=== PATIENT | male | born 1965 | race Caucasian/White ===

== ENCOUNTER 2016-05-16 16:43 | Emergency (ER) | payer SELFPAY ==
[2016-05-16 16:53] VITALS: BP 135/99; PULSE 99; RESP 14; TEMP 98.4; O2SAT 95
--- NOTE | 2016-05-16 18:21 | EDPHY ---
H & P Stated Complaint: R ear pain x2 days - Personal History Current Tetanus/Diphtheria Vaccine: Yes Current Tetanus Diphtheria and Acellular Pertussis (TDAP): Yes Tetanus Vaccine Date: 2006 - Medical/Surgical History Hx Asthma: No Hx Chronic Respiratory Disease: No Hx Diabetes: No Hx Cardiac Disease: No Hx Renal Disease: No Hx Cirrhosis: No Hx Alcoholism: No Hx HIV/AIDS: No Hx Splenectomy or Spleen Trauma: No Other PMH: MEDICAL- ADD. SURGICAL- CARPAL TUNNEL, TONSILECTOMY - Social History Smoking Status: Heavy smoker Time Seen by Provider: 05/16/16 17:57 HPI/ROS: Chief complaint: Right ear pain History of present illness: 50-year-old male presents to the emergency department for evaluation of right ear pain. Patient reports the onset of symptoms over the last 2 days. He states his slowly worsening. Pain radiates down towards the neck. He denies precipitating factors. He denies alleviating factors. He denies other associated signs or symptoms including no changes in hearing, no discharge from the ear, no fevers, no nasal congestion or runny nose , no sore throat, no cough, no body aches or rash. (Godwin Robertson) - Physical Exam Exam: General Appearance: Alert and no distress. Eyes: Pupils equal and round no injection. ENT: Right tympanic membrane is erythematous and bulging with loss of normal anatomic landmarks, no evidence of perforation, left tympanic membrane unremarkable, the external auditory canals, external ears and surrounding soft tissue including over the mastoids are unremarkable. Nasopharynx is not injected. There is no rhinorrhea. Oropharynx is not injected. There is no edema. There is no exudate. There is no asymmetry. The uvula is midline. No elevation of the tongue. There is no hoarseness, no drooling, no trismus, no stridor. Respiratory: Chest is non tender, lungs are clear to auscultation. Cardiac: regular rate and rhythm Musculoskeletal: Neck is supple and non tender. Extremities have full range of motion and are non tender. Skin: No rashes or lesions. Neurological: Alert and oriented. No meningismus. (Godwin Robertson) Constitutional: Initial Vital Signs Temperature (C) 36.9 C 05/16/16 16:51 Heart Rate 99 05/16/16 16:51 Respiratory Rate 14 01/06/17 16:51 Blood Pressure 135/99 H 05/16/16 16:51 O2 Sat (%) 95 05/16/16 16:51 O2 Delivery Mode Room Air Allergies/Adverse Reactions: No Known Allergies Allergy (Unverified 05/16/16 16:51) Home Medications: Medication Instructions Recorded Adderall 10 MG (RX) 07/13/13 AMOXICILLIN TRIHYDRATE [Amoxil] 875 mg PO BID 10 Days 05/16/16 Hydrocodone/APAP 5/325 [[place] 1 tab PO Q6H #6 tab 05/16/16 5/325 (*)] Medical Decision Making ED Course/Re-evaluation: Patient seen under the supervision of my secondary supervising physician Dr. Artis Wheeler. Patient presents to the emergency department for right ear pain. Patient appears to have an acute otitis media. No evidence of complications such as perforation or mastoiditis. He is started on antibiotics. Symptomatic care is discussed. He is asked to follow up with a primary care doctor for recheck. Strict return precautions are given. Patient voiced understanding and agreement with plan. (Godwin Robertson) I did not see this patient while he was in the emergency department. However his care was discussed with the PA while the patient was in the department. I agree with treatment plan and management (Artis Wheeler) Departure - Departure Disposition: Home, Routine, Self-Care Clinical Impression: Right acute otitis media Condition: Good Instructions: Otitis Media (ED) Additional Instructions: Follow-up with primary care doctor for recheck Use medications as prescribed If you develop any discharge/bloody discharge from the ear do not place any ear drops in your ear and please be re-evaluated by a doctor You have been prescribed [[place]] for pain. [[place]] contains Tylenol, do not take extra Tylenol/acetaminophen/Apap with it. It is sedating. If symptoms worsen or new symptoms develop return to the emergency department for recheck Referrals: NONE *PRIMARY CARE P,. [Primary Care Provider] - As per Instructions [facility] [Outside] - As per Instructions Prescriptions: AMOXICILLIN TRIHYDRATE [Amoxil] 875 mg PO BID 10 Days Hydrocodone/APAP 5/325 [[place] 5/325 (*)] 1 tab PO Q6H #6 tab
== END 2016-05-16 18:30 | disposition home or self-care (01) ==
DX: H66.91 Otitis media, unspecified, right ear (principal); F17.200 Nicotine dependence, unspecified, uncomplicated

== ENCOUNTER 2017-10-15 18:48 | Emergency (ER) | payer SELFPAY ==
[2017-10-15] MEDS ORDERED: NS 500 ML IV ONE (19:05)
--- NOTE | 2017-10-15 19:18 | CPEKG ---
Heart Rate: 97 RR Interval: 619 P-R Interval: 152 QRSD Interval: 96 QT Interval: 352 QTC Interval: 447 P [place]: 45 QRS [place]: 74 T Wave [place]: 60 EKG Severity - NORMAL ECG - EKG Impression: SINUS RHYTHM Electronically Signed By: Mauro Barros 15-Oct-2017 20:40:25
[2017-10-15 19:30] LABS: PLATELET COUNT 176 10^3/uL (150-400)
[2017-10-15] MEDS ORDERED: MAG HYDROX/AL HYDROX/SIMETH 30 ML UDCUP PO ONE (19:34)
[2017-10-15] MEDS ORDERED: NS 1,000 ML IV ONE ×3 (19:34→20:28)
[2017-10-15] MEDS ORDERED: LIDOCAINE 2% VISCOUS 15 ML UDCUP PO ONE (19:34)
[2017-10-15] MEDS ORDERED: FAMOTIDINE 20 MG/NACL 50 ML IV ONE (19:34)
[2017-10-15] MEDS ORDERED: ONDANSETRON 4 MG/2 ML VIAL IVP ONE (19:34)
[2017-10-15] MEDS ORDERED: HYOSCYAMINE SULFATE 0.125 MG TAB PO ONE (19:34)
--- NOTE | 2017-10-15 19:39 | EDPHY ---
H & P Time Seen by Provider: 10/15/17 19:05 HPI/ROS: HPI Diarrhea, dehydration, weakness. 52-year-old male by private vehicle. He reports that he ate at a [place] restaurant on Thursday evening. After doing this he developed watery diarrhea. He reports he has had multiple episodes of watery diarrhea since this time. He has had a loss of appetite but denies nausea or vomiting. Denies any bloody or melenic stool. States that he feels very dehydrated and fatigued. He also has had a sensation of heartburn/dyspepsia describing this is burning sensation from his stomach up through his esophagus. He reports this has been going on for the last couple of days. Denies any ill contacts. Denies syncope. ROS: Constitutional: No fever, no chills. As above. Eyes: No discharge. No changes in vision. ENT: No sore throat. No nasal congestion or rhinorrhea. Respiratory: No cough. No shortness of breath. Cardiac: No chest pain, no palpitations. Gastrointestinal: No abdominal pain, no vomiting, as above. Genitourinary: No hematuria. No dysuria or increased frequency with urination. Musculoskeletal: No back pain. No neck pain. No myalgias or arthralgias. Skin: No rashes. Neurological: No headache. No focal weakness or altered sensation. Past medical history: Carpal tunnel surgery, tonsillectomy. Denies other past medical history. Social history: Denies alcohol. States that he smokes. No IV drugs or street drugs. Here by himself. Lives in a private residence. Physical Exam: General Appearance: Alert, no distress. This patient is responding to questions appropriately and in full sentences. This patient appears well- hydrated and well-nourished. Eyes: Pupils equal and round no pallor or injection. No lid edema, erythema or injection. Respiratory: There are no retractions, lungs are clear to auscultation with good air movement bilaterally. Cardiovascular: Regular rate and rhythm. Borderline tachycardia. No murmur. Gastrointestinal: Abdomen is soft and nontender, no masses, bowel sounds normal. No focal tenderness at McBurney's point. No Lopez sign. Neurological: Motor sensory function is grossly intact. Cranial nerves are normal. Gait is normal. Skin: Warm and dry, no rashes. Musculoskeletal: Neck is supple and nontender. Extremities are symmetrical. All joints range without pain or impingement. Psychiatric: No agitation. No depression. Database: EKG: EKG time is 7:15 p.m.; EKG shows a narrow complex normal sinus rhythm with a ventricular rate of 97. The MS, QRS, QT intervals are within normal limits. There are no ST-T wave changes indicative of ischemic or injury pattern. No evidence of right heart strain. Interpreted by me. Imaging: Procedures: Emergency department course: IV placed. Triage vital signs reviewed. The patient is mildly tachycardic. Vital signs otherwise normal. His presentation is consistent with dehydration secondary to his diarrhea. EKG obtained and reviewed by myself. IV established. He will be started on IV normal saline with 2-3 L to be given over the next 1-2 hours. He will be given 20 mg of IV Pepcid, 4 mg of IV Zofran and a GI cocktail. 8:30 p.m., the patient was re-evaluated. He appears comfortable. Repeat abdominal exam is soft and nontender. He still is mildly tachycardic at 105. Remains afebrile. He will be given more IV fluid in the form of lactated Ringer 's. He will be given something to eat. 10:15 p.m., patient re-evaluated. He had part of a sandwich and some juice and crackers. He is feeling better. Repeat abdominal exam is soft, nontender nondistended. He has had 3 L of fluid. He still remains mildly tachycardic. I discussed giving him more IV fluid and continuing to observe him in the emergency department. He does not want to do this and he is requesting discharge to home. I discussed the results of all of his emergency department testing with him. All of his questions were answered. I stressed the importance of oral hydration. I will prescribe him Zofran for nausea. Return to emergency department precautions and follow-up were thoroughly reviewed with him. He was discharged from the emergency department in good condition. Differential Diagnosis: The differential diagnosis on this patient includes but is not limited to diarrhea, dehydration. Acute coronary syndrome, arrhythmia, near syncope unlikely. This represents a partial list of diagnoses considered. These considerations are based on history, physical exam, past history, reassessment and diagnostic testing. Smoking Status: Heavy smoker Constitutional: Initial Vital Signs Temperature (C) 36.7 C 10/15/17 18:59 Heart Rate 106 H 10/15/17 18:59 Respiratory Rate 16 10/15/17 18:59 Blood Pressure 122/80 H 10/15/17 18:59 O2 Sat (%) 95 10/15/17 18:59 O2 Delivery Mode Room Air Allergies/Adverse Reactions: No Known Allergies Allergy (Unverified 10/15/17 18:58) Home Medications: Medication Instructions Recorded Adderall 10 MG (*) 10/15/17 Ondansetron Odt [Zofran Odt 4 mg 4 mg PO Q4PRN PRN #10 tab 10/15/17 (*)] Medical Decision Making - Data Points Laboratory Results: Laboratory Results 10/15/17 19:06 10/15/17 19:06 10/15/17 10/15/17 10/15/17 19:21 19:06 19:06 WBC 5.85 10^3/uL 10^3/uL (3.80-9.50) RBC 5.60 10^6/uL 10^6/uL (4.40-6.38) Hgb 15.9 g/dL g/dL (13.7-17.5) Hct 46.5 % % (40.0-51.0) MCV 83.0 fL fL (81.5-99.8) MCH 28.4 pg pg (27.9-34.1) MCHC 34.2 g/dL g/dL (32.4-36.7) RDW 12.6 % % (11.5-15.2) Plt Count 176 10^3/uL 10^3/uL (150-400) MPV 9.5 fL fL (8.7-11.7) Neut % (Auto) Not Reported Lymph % (Auto) Not Reported [place] % (Auto) Not Reported Eos % (Auto) Not Reported Baso % (Auto) Not Reported Nucleat RBC Rel Count Not Reported Absolute Neuts (auto) Not Reported Absolute Lymphs (auto) Not Reported Absolute Monos (auto) Not Reported Absolute Eos (auto) Not Reported Absolute Basos (auto) Not Reported Absolute Nucleated RBC Not Reported Immature Gran % Not Reported Seg Neutrophils % 61.6 % % Band Neutrophils % 0 % % Lymphocytes % 19.2 % % Monocytes % 11.1 % % Eosinophils % 6.1 % % Basophils % 0 % % Metamyelocytes % 0 % % Myelocytes % 0 % % Promyelocytes % 0 % % Blast Cells % 0 % % Immature Gran # Not Reported Absolute Seg Neuts 3.60 10^/uL 10^/uL (1.70-6.50) Absolute Band Neuts 0.00 10^3/uL 10^3/uL (0.00-0.70) Absolute Lymphocytes 1.12 10^3/uL 10^3/uL (1.00-3.00) Absolute Monocytes 0.65 10^3/uL 10^3/uL (0.30-0.80) Absolute Eosinophils 0.36 10^3/uL 10^3/uL (0.03-0.40) Absolute Basophils 0.00 10^3/uL L 10^3/uL (0.02-0.10) Absolute Metamyelocyte 0.00 10^3/mL 10^3/mL (0.00-0.00) Absolute Myelocytes 0.00 10^3/mL 10^3/mL (0.00-0.00) Absolute Promyelocytes 0.00 10^3/uL 10^3/uL (0.00-0.00) Absolute Plasma Cells 0.12 10^3/uL H 10^3/uL (0.00-0.00) Absolute Blast Cells 0.00 10^3/uL 10^3/uL (0.00-0.00) Plasma Cells % 2.0 % % Platelet Estimate ADEQUATE (ADEQ) Tear Drop Cells 1+ H Echinocytes 1+ H Smear Review By Pending Sodium 136 mEq/L mEq/L (135-145) Potassium 4.0 mEq/L mEq/L (3.3-5.0) Chloride 99 mEq/L mEq/L (97-110) Carbon Dioxide 29 mEq/l mEq/l (22-31) Anion Gap 8 mEq/L mEq/L (8-16) BUN 13 mg/dL mg/dL (7-23) Creatinine 1.0 mg/dL mg/dL (0.7-1.3) Estimated GFR > 60 Glucose 75 mg/dL mg/dL (70-100) Calcium 8.3 mg/dL L mg/dL (8.5-10.4) POC Troponin I 0.00 ng/mL ng/mL (0.00-0.08) Medications Given: Discontinued Medications Al Hydroxide/Mg Hydroxide (Maalox Susp) 30 ml PO ONCE ONE Stop: 10/15/17 19:35 Last Admin: 10/15/17 19:40 Dose: 30 ml Hyoscyamine Sulfate (Levsin, Hyomax-Sl) 0.25 mg PO ONCE ONE Stop: 10/15/17 19:35 Last Admin: 10/15/17 19:40 Dose: 0.25 mg Sodium Chloride (Ns) 500 mls @ 1,000 mls/hr IV EDNOW ONE PRN Reason: Protocol Stop: 10/15/17 19:34 Last Admin: 10/15/17 19:18 Dose: 500 mls Sodium Chloride (Ns) 1,000 mls @ 0 mls/hr IV EDNOW ONE; Wide Open PRN Reason: Protocol Stop: 10/15/17 19:35 Last Admin: 10/15/17 19:41 Dose: 1,000 mls Sodium Chloride (Ns) 1,000 mls @ 0 mls/hr IV EDNOW ONE; Wide Open PRN Reason: Protocol Stop: 10/15/17 19:35 Last Admin: 10/15/17 19:41 Dose: 1,000 mls Famotidine/Sodium Chloride (Pepcid 20 Mg (Premix)) 50 mls @ 200 mls/hr IV EDNOW ONE Stop: 10/15/17 19:48 Last Admin: 10/15/17 19:40 Dose: 50 mls Lactated Ringer's (Lr) 1,000 mls @ 500 mls/hr IV EDNOW ONE Stop: 10/15/17 22:28 Last Admin: 10/15/17 20:32 Dose: 1,000 mls Lidocaine (Lidocaine 2% Viscous) 15 ml PO ONCE ONE Stop: 10/15/17 19:35 Last Admin: 10/15/17 19:39 Dose: 15 ml Ondansetron HCl (Zofran) 4 mg IVP EDNOW ONE Stop: 10/15/17 19:35 Last Admin: 10/15/17 19:43 Dose: 4 mg Point of Care Test Results: Chemistry 10/15/17 19:21 POC Troponin I 0.00 ng/mL ng/mL (0.00-0.08) Departure - Departure Disposition: Home, Routine, Self-Care Clinical Impression: Diarrhea, Dehydration, Tachycardia Condition: Good Instructions: Dehydration (ED), Acute Diarrhea (ED) Additional Instructions: Read and follow provided instructions. Follow-up with your primary care physician on Thursday for re-evaluation as needed. I have provided you with 2 different options for follow-up. Take medication as prescribed for nausea. Keep well hydrated. A good fluid to drink is Gatorade mixed with water in a 1- 1 dilution over ice. Return to the emergency department for worsening symptoms, vomiting, fainting, worsening abdominal pain, bloody stool or other serious concerns. Referrals: Hernandez Rios MD [Medical Doctor] - As per Instructions [facility] [Outside] - As per Instructions Carmen Juarez MD [Medical Doctor] - As per Instructions Prescriptions: Ondansetron Odt [Zofran Odt 4 mg (*)] 4 mg PO Q4PRN PRN #10 tab PRN Reason: For Nausea & Vomiting
[2017-10-15] MEDS ORDERED: LR 1,000 ML IV ONE (20:29)
[2017-10-15] MEDS ORDERED: ONDANSETRON 4MG PREPACK#2 BTL TAKEHOME ONE (22:34)
[2017-10-15 22:54] VITALS: BP 123/82
== END 2017-10-15 22:51 | disposition home or self-care (01) ==
DX: E86.0 Dehydration (principal); R00.0 Tachycardia, unspecified; F17.200 Nicotine dependence, unspecified, uncomplicated; E86.9 Volume depletion, unspecified
CPT/HCPCS: 84484-PO; J2405

== ENCOUNTER 2017-10-20 00:17 | Emergency (ER) | payer SELFPAY ==
[2017-10-20 20:08] VITALS: BP 117/67
[2017-10-20 23:36] LABS: PLATELET COUNT 308 10^3/uL (150-400)
--- NOTE | 2017-10-21 02:48 | EDPHY ---
H & P Stated Complaint: abdominal pian Time Seen by Provider: 10/20/17 00:30 HPI/ROS: HPI CHIEF COMPLAINT: Abdominal pain, nausea. HISTORY OF PRESENT ILLNESS: Patient is a 52-year-old male, presents emergency room by private vehicle for abdominal discomfort, and abdominal bloating with associated nausea but no vomiting. He does report some diarrhea but no fever. Denies bloody stools. Denies chest pain or shortness of breath. He states has been going on for week. He states he was recently seen here in the emergency room earlier in the week. I did review his previous ER workup which she was seen for diarrhea dehydration and generalized weakness. Past Medical History: Denies any significant medical history Past Surgical History: Carpal tunnel surgery, tonsillectomy Social History: Smokes tobacco, denies illicit drugs or alcohol. Family History: Noncontributory ROS REVIEW OF SYSTEMS: A comprehensive 10 point review of systems is otherwise negative aside from elements mentioned in the history of present illness. Exam Constitutional triage nursing summary reviewed, vital signs reviewed, awake/ alert. Eyes normal conjunctivae and sclera, EOMI, PERRLA. HENT normal inspection, atraumatic, moist mucus membranes, no epistaxis, neck supple/ no meningismus, no raccoon eyes. Respiratory clear to auscultation bilaterally, normal breath sounds, no respiratory distress, no wheezing. Cardiovascular rate normal, regular rhythm, no murmur, no edema, distal pulses normal. Gastrointestinal soft, non-tender, no rebound, no guarding, normal bowel sounds, no distension, no pulsatile mass. Genitourinary no CVA tenderness. Musculoskeletal no midline vertebral tenderness, full range of motion, no calf swelling, no tenderness of extremities, no meningismus, good pulses, neurovascularly intact. Skin pink, warm, & dry, no rash, skin atraumatic. Neurologic awake, alert and oriented x 3, AAOx3, moves all 4 extremities equally, motor intact, sensory intact, CN II-XII intact, normal cerebellar, normal vision, normal speech. Psychiatric normal mood/affect. Heme/Lymph/Immune no lymphadenopathy. Differential Diagnosis: Differential diagnosis includes but is not limited to and in no particular order: Bowel obstruction, appendicitis, gallbladder disease, diverticulitis, colitis, enteritis, perforated viscus, gastritis, GERD , esophagitis, urinary tract infection, pyelonephritis, kidney stones Medical Decision Making: Plan for this patient IV establishment blood draw, IV fluid bolus 1 L normal saline, IV Pepcid 20 mg for upset stomach, will proceed with CT scan abdomen pelvis with IV contrast and will re-evaluate. Re-evaluation: EKG interpretation by me on record in [facility] system. Impression time of EKG 41, sinus rhythm rate of 96. No acute ischemic change. Lactic acid noted be 1.2. Chemistry panel reviewed. Normal lipase and normal electrolytes creatinine is 0.9 CT scan abdomen pelvis with IV contrast called to me by Dr. Chan, negative for acute inflammatory process. 0505:AM: I did go re-evaluate the patient, no acute distress. Re-examination is abdomen is soft nontender. He is not vomiting. Blood work has been reviewed. CT scan shows no acute inflammatory process possible constipation. Will place on MiraLax. Recommend drinking lots of fluids bland diet MiraLax. Recommend return emergency room if develops worsening abdominal pain fever vomiting he understands. Prescription given for MiraLax. Final diagnosis constipation, abdominal discomfort. Return precautions discussed Source: Patient - Personal History Current Tetanus/Diphtheria Vaccine: Unsure Current Tetanus Diphtheria and Acellular Pertussis (TDAP): Unsure Tetanus Vaccine Date: 2006 - Medical/Surgical History Hx Asthma: No Hx Chronic Respiratory Disease: No Hx Diabetes: No Hx Cardiac Disease: No Hx Renal Disease: No Hx Cirrhosis: No Hx Alcoholism: No Hx HIV/AIDS: No Hx Splenectomy or Spleen Trauma: No Other PMH: MEDICAL- ADD. SURGICAL- CARPAL TUNNEL, TONSILECTOMY - Social History Smoking Status: Heavy smoker Constitutional: Initial Vital Signs Temperature (C) 36.7 C 10/20/17 00:23 Heart Rate 106 H 10/20/17 00:23 Respiratory Rate 16 10/20/17 00:23 Blood Pressure 108/72 10/20/17 00:23 O2 Sat (%) 95 10/20/17 00:23 O2 Delivery Mode Room Air Allergies/Adverse Reactions: No Known Allergies Allergy (Unverified 10/20/17 20:03) Home Medications: Medication Instructions Recorded Adderall 10 MG (*) 10/15/17 Ondansetron Odt [Zofran Odt 4 mg 4 mg PO Q4PRN PRN #10 tab 10/15/17 (*)] Medical Decision Making - Data Points Laboratory Results: Laboratory Results 10/20/17 00:56 10/20/17 10/20/17 00:56 00:50 WBC 7.66 10^3/uL 10^3/uL (3.80-9.50) RBC 5.41 10^6/uL 10^6/uL (4.40-6.38) Hgb 15.3 g/dL g/dL (13.7-17.5) Hct 44.5 % % (40.0-51.0) MCV 82.3 fL fL (81.5-99.8) MCH 28.3 pg pg (27.9-34.1) MCHC 34.4 g/dL g/dL (32.4-36.7) RDW 12.9 % % (11.5-15.2) Plt Count 308 10^3/uL 10^3/uL (150-400) MPV 9.3 fL fL (8.7-11.7) Neut % (Auto) Not Reported Lymph % (Auto) Not Reported [place] % (Auto) Not Reported Eos % (Auto) Not Reported Baso % (Auto) Not Reported Nucleat RBC Rel Count Not Reported Absolute Neuts (auto) Not Reported Absolute Lymphs (auto) Not Reported Absolute Monos (auto) Not Reported Absolute Eos (auto) Not Reported Absolute Basos (auto) Not Reported Absolute Nucleated RBC Not Reported Immature Gran % Not Reported Seg Neutrophils % 53 % % Band Neutrophils % 15 % % Lymphocytes % 31 % % Monocytes % 10 % % Immature Gran # Not Reported Absolute Seg Neuts 3.72 10^/uL 10^/uL (1.70-6.50) Absolute Band Neuts 1.05 10^3/uL H 10^3/uL (0.00-0.70) Absolute Lymphocytes 2.17 10^3/uL 10^3/uL (1.00-3.00) Absolute Monocytes 0.70 10^3/uL 10^3/uL (0.30-0.80) Platelet Estimate Pending VBG Lactic Acid 1.2 mmol/L mmol/L (0.7-2.1) Departure - Departure Disposition: Home, Routine, Self-Care Clinical Impression: Abdominal pain Qualifiers: Abdominal location: generalized Qualified Code(s): R10.84 - Generalized abdominal pain Constipation Qualifiers: Constipation type: other constipation type Qualified Code(s): K59.09 - Other constipation Condition: Good Referrals: NONE *PRIMARY CARE P,. [Primary Care Provider] - As per Instructions
--- NOTE | 2017-10-21 09:44 | CPEKG ---
Heart Rate: 96 RR Interval: 625 P-R Interval: 156 QRSD Interval: 104 QT Interval: 364 QTC Interval: 460 P [place]: 69 QRS [place]: 80 T Wave [place]: 55 EKG Severity - NORMAL ECG - EKG Impression: SINUS RHYTHM Electronically Signed By: Nahum Tolbert 21-Oct-2017 11:35:44
--- NOTE | 2017-10-21 14:56 | EDPHY ---
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 HISTORY OF PRESENT ILLNESS: Patient is a 52-year-old male, presents emergency room by private vehicle for abdominal discomfort, and abdominal bloating with associated nausea but no vomiting. He does report some diarrhea but no fever. Denies bloody stools. Denies chest pain or shortness of breath. He states has been going on for week. He states he was recently seen here in the emergency room earlier in the week. I did review his previous ER workup which she was seen for diarrhea dehydration and generalized weakness. Past Medical History: Denies any significant medical history Past Surgical History: Carpal tunnel surgery, tonsillectomy Social History: Smokes tobacco, denies illicit drugs or alcohol. Family History: Noncontributory ROS REVIEW OF SYSTEMS: A comprehensive 10 point review of systems is otherwise negative aside from elements mentioned in the history of present illness. Exam Constitutional triage nursing summary reviewed, vital signs reviewed, awake/alert. Eyes normal conjunctivae and sclera, EOMI, PERRLA. HENT normal inspection, atraumatic, moist mucus membranes, no epistaxis, neck supple/ no meningismus, no raccoon eyes. Respiratory clear to auscultation bilaterally, normal breath sounds, no respiratory distress, no wheezing. Cardiovascular rate normal, regular rhythm, no murmur, no edema, distal pulses normal. Gastrointestinal soft, non-tender, no rebound, no guarding, normal bowel sounds, no distension, no pulsatile mass. Genitourinary no CVA tenderness. Musculoskeletal no midline vertebral tenderness, full range of motion, no calf swelling, no tenderness of extremities, no meningismus, good pulses, neurovascularly intact. Skin pink, warm, dry, no rash, skin atraumatic. Neurologic awake, alert and oriented x 3, AAOx3, moves all 4 extremities equally, motor intact, sensory intact, CN II-XII intact, normal cerebellar, normal vision, normal speech. Psychiatric normal mood/affect. Heme/Lymph/Immune no lymphadenopathy. Differential Diagnosis: Differential diagnosis includes but is not limited to and in no particular order: Bowel obstruction, appendicitis, gallbladder disease, diverticulitis, colitis, enteritis, perforated viscus, gastritis, GERD, esophagitis, urinary tract infection, pyelonephritis, kidney stones Medical Decision Making: Plan for this patient IV establishment blood draw, IV fluid bolus 1 L normal saline, IV Pepcid 20 mg for upset stomach, will proceed with CT scan abdomen pelvis with IV contrast and will re-evaluate. Re-evaluation: EKG interpretation by me on record in [employer] system. Impression time of EKG 0042, sinus rhythm rate of 96. No acute ischemic change. Lactic acid noted be 1.2. Chemistry panel reviewed. Normal lipase and normal electrolytes creatinine is 0.9 CT scan abdomen pelvis with IV contrast called to me by Dr. Chan, negative for acute inflammatory process. 0505:AM: I did go re-evaluate the patient, no acute distress. Re-examination is abdomen is soft nontender. He is not vomiting. Blood work has been reviewed. CT scan shows no acute inflammatory process possible constipation. Will place on MiraLax. Recommend drinking lots of fluids bland diet MiraLax. Recommend return emergency room if develops worsening abdominal pain fever vomiting he understands. Prescription given for MiraLax. Final diagnosis constipation, abdominal discomfort. Return precautions discussed Source: Patient - Personal History Current Tetanus/Diphtheria Vaccine: Yes Current Tetanus Diphtheria and Acellular Pertussis (TDAP): Yes Tetanus Vaccine Date: 2006 - Medical/Surgical History Hx Asthma: No Hx Chronic Respiratory Disease: No Hx Diabetes: No Hx Cardiac Disease: No Hx Renal Disease: No Hx Cirrhosis: No Hx Alcoholism: No Hx HIV/AIDS: No Hx Splenectomy or Spleen Trauma: No Other PMH: MEDICAL- ADD. SURGICAL- CARPAL TUNNEL, TONSILECTOMY - Social History Smoking Status: Heavy smoker Constitutional: Initial Vital Signs Temperature (C) 36.7 C 10/20/17 00:22 Heart Rate 106 H 10/20/17 00:22 Respiratory Rate 16 10/20/17 00:22 Blood Pressure 108/72 10/20/17 00:22 O2 Sat (%) 95 10/20/17 00:22 O2 Delivery Mode Room Air Allergies/Adverse Reactions: No Known Allergies Allergy (Unverified 10/15/17 18:58) Home Medications: Medication Instructions Recorded Adderall 10 MG (*) 10/15/17 Ondansetron Odt [Zofran Odt 4 mg 4 mg PO Q4PRN PRN #10 tab 10/15/17 (*)] Medical Decision Making - Data Points Laboratory Results: 10/20/17 10/20/17 10/20/17 01:00 01:00 01:00 WBC Pending RBC Pending Hgb Pending Hct Pending MCV Pending MCH Pending MCHC Pending RDW Pending Plt Count Pending MPV Pending Neut % (Auto) Pending Lymph % (Auto) Pending [place] % (Auto) Pending Eos % (Auto) Pending Baso % (Auto) Pending Nucleat RBC Rel Count Pending Absolute Neuts (auto) Pending Absolute Lymphs (auto) Pending Absolute Monos (auto) Pending Absolute Eos (auto) Pending Absolute Basos (auto) Pending Absolute Nucleated RBC Pending Immature Gran % Pending Immature Gran # Pending PT Pending INR Pending APTT Pending Sodium Pending Potassium Pending Chloride Pending Carbon Dioxide Pending Anion Gap Pending BUN Pending Creatinine Pending Estimated GFR Pending Glucose Pending Calcium Pending Total Bilirubin Pending Conjugated Bilirubin Pending Unconjugated Bilirubin Pending AST Pending ALT Pending Alkaline Phosphatase Pending POC Troponin I Total Protein Pending Albumin Pending Lipase Pending Urine RBC Urine WBC Ur Epithelial Cells 10/20/17 10/20/17 01:00 00:45 WBC RBC Hgb Hct MCV MCH MCHC RDW Plt Count MPV Neut % (Auto) Lymph % (Auto) [place] % (Auto) Eos % (Auto) Baso % (Auto) Nucleat RBC Rel Count Absolute Neuts (auto) Absolute Lymphs (auto) Absolute Monos (auto) Absolute Eos (auto) Absolute Basos (auto) Absolute Nucleated RBC Immature Gran % Immature Gran # PT INR APTT Sodium Potassium Chloride Carbon Dioxide Anion Gap BUN Creatinine Estimated GFR Glucose Calcium Total Bilirubin Conjugated Bilirubin Unconjugated Bilirubin AST ALT Alkaline Phosphatase POC Troponin I 0.00 ng/mL ng/mL (0.00-0.08) Total Protein Albumin Lipase Urine RBC Pending Urine WBC Pending Ur Epithelial Cells Pending Point of Care Test Results: Chemistry 10/20/17 00:45 POC Troponin I 0.00 ng/mL ng/mL (0.00-0.08) Departure - Departure Disposition: Home, Routine, Self-Care Clinical Impression: Constipation Qualifiers: Constipation type: other constipation type Qualified Code(s): K59.09 - Other constipation Condition: Good Instructions: Constipation (ED) Referrals: NONE *PRIMARY CARE P,. [Primary Care Provider] - As per Instructions *This report may have been compiled using a voice recognition system, and might contain typographical errors and blanks.* Dylon Swanson MD 10/20/17 0748 <Electronically signed by Dylon Swanson MD> 1 T: ADRIEL 10/20/17721 CC: NONE *PRIMARY CARE PHYS ONLY*
== END 2017-10-20 05:30 | disposition home or self-care (01) ==
DX: K59.00 Constipation, unspecified (principal); F17.200 Nicotine dependence, unspecified, uncomplicated
CPT/HCPCS: 84484-PO

== ENCOUNTER 2018-08-23 16:37 | Emergency (ER) | payer OTHER ==
--- NOTE | 2018-08-23 16:59 | EDPHY ---
H & P Stated Complaint: right foot red hot swollen and painful Time Seen by Provider: 08/23/18 16:55 HPI/ROS: HPI: This is a 53-year-old male who presents with Chief Complaint: Right great toe painful and swollen Location: Right great toe Quality: Red and painful Duration: Woke up this morning with this pain Signs and Symptoms: No bleeding, no radiation, no numbness, no weakness, no tingling, no incontinence, no decreased range of motion, + swelling, + pain, no fever, + redness, + warmth Timing: Rapid onset, constant Severity: 11/17 Context: Patient woke up this morning and reports that he is right great toe was bright red, swollen and painful. He reports that the pain increases with weight-bearing or touching the area. He denies any trauma or injury. He has no fever. He reports that there is no nail involvement. Patient does not have a primary care provider and does not receive regular medical care. Denies radiation, weakness, paresthesias. Patient denies eating a high purine diet. Modifying Factors: None Comment: ROS: A comprehensive 10 system review of systems is otherwise negative aside from elements mentioned in the history of present illness. MEDICAL/SURGICAL/SOCIAL HISTORY: Medical history: Generally healthy. Does not take any regular medications. Surgical history: Carpal tunnel surgery, tonsillectomy Social history: , heavy smoker. CONSTITUTIONAL: Well-developed, well-nourished, middle-aged male who appears older than stated age, significant other at bedside, awake and alert, no obvious distress HEENT: Atraumatic and normocephalic. NECK: supple, no midline tenderness Cardiovascular: Normal S1/S2, regular rate, regular rhythm, without murmur rub or gallop. PULMONARY/CHEST: Symmetrical and nontender. Clear to auscultation bilaterally. Good air movement. No accessory muscle usage. ABDOMEN: Soft, nondistended, nontender. EXTREMITIES: 2/2 pulses, strength 5/5, right great toe shows moderate erythema , warmth, mild swelling associated with decreased range of motion with flexion concentrated at great toe and not extending into foot. Patient does have full range of motion though of the DIP/MTP joint space, with good light touch sensation. no deformities, no clubbing, no cyanosis or edema. NEUROLOGICAL: no focal neuro deficits. GCS 15. Light touch sensation intact. SKIN: Warm and dry, leathery, no erythema. no rash. Good capillary refill. Source: Patient Exam Limitations: No limitations - Personal History Current Tetanus/Diphtheria Vaccine: Yes Current Tetanus Diphtheria and Acellular Pertussis (TDAP): Yes Tetanus Vaccine Date: < 10 years - Medical/Surgical History Hx Asthma: No Hx Chronic Respiratory Disease: No Hx Diabetes: No Hx Cardiac Disease: No Hx Renal Disease: No Hx Cirrhosis: No Hx Alcoholism: No Hx HIV/AIDS: No Hx Splenectomy or Spleen Trauma: No Other PMH: MEDICAL- ADD. SURGICAL- CARPAL TUNNEL, TONSILECTOMY - Social History Smoking Status: Light smoker Constitutional: Initial Vital Signs Temperature (C) 36.8 C 08/23/18 16:40 Heart Rate 99 08/23/18 16:40 Respiratory Rate 18 08/23/18 16:40 Blood Pressure 154/98 H 08/23/18 16:40 O2 Sat (%) 94 08/23/18 16:40 O2 Delivery Mode Room Air Allergies/Adverse Reactions: No Known Allergies Allergy (Verified 12/25/17 16:20) Home Medications: Medication Instructions Recorded Adderall 10 MG (*) 10/15/17 Hydrocodone/APAP 5/325 [[place] 1 tab PO Q6 PRN #10 tab 12/25/17 5/325 (RX)] Colchicine [Colchicine (*)] 0.6 mg PO ONCE #1 tab 08/23/18 Indomethacin 50 mg PO Q8 #15 capsule 08/23/18 oxyCODONE/APAP 5/325 [Percocet 1 - 2 tab PO Q4H PRN #10 tab 08/23/18 5/325 (*)] Medical Decision Making - Diagnostics Imaging Results: Imaging Impressions Foot X-Ray 08/23/18 17:00 Impression: Brandon soft tissue swelling. ED Course/Re-evaluation: Vital signs reviewed and show mildly elevated blood pressure upon arrival. IV access, laboratory studies, right foot x-ray ordered Patient has no regular primary care physician and has not had not had laboratory studies performed in years Given IV Decadron 10 mg, IV Toradol 30 mg, p.o. Colchicine 1.2 mg with adequate pain relief Foot x-ray my read shows no fracture, dislocation, foreign body. + soft tissue swelling and degenerative changes at the MCP joint noted with mild hallux valgus. 1758: Laboratory studies reviewed. H&H stable, creatinine 0.9, glucose 129, CRP 26.5 Placed in postop shoe, crutches, [facility] Given a prescription for colchicine 0.6 mg x1 tomorrow, indomethacin three times daily times 2-3 days, and a few Percocet p.r.n. No signs of neurovascular compromise/tenting of skin/compartment syndrome/ extremities and joints examined above and below area of concern and are neurovascularly intact. This patient was seen under the supervision of my secondary supervising physician. I evaluated care for this patient with attending. Differential Diagnosis: Differential diagnosis includes but is not limited to cellulitis, fracture, abscess, paronychia eye, gouty arthropathy, rheumatoid arthritis flare. - Data Points Laboratory Results: Laboratory Results 08/23/18 17:07 08/23/18 17:07 08/23/18 08/23/18 17:07 17:07 Hct 42.4 % % (40.0-51.0) ESR 9 MM/HR MM/HR (0-20) Sodium 135 mEq/L mEq/L (135-145) Potassium 4.1 mEq/L mEq/L (3.5-5.2) Chloride 101 mEq/L mEq/L (97-110) Carbon Dioxide 29 mEq/l mEq/l (22-31) Anion Gap 5 mEq/L L mEq/L (6-14) BUN 14 mg/dL mg/dL (7-23) Creatinine 0.9 mg/dL mg/dL (0.7-1.3) Estimated GFR > 60 Glucose 129 mg/dL H mg/dL (70-100) Uric Acid 6.3 mg/dL mg/dL (3.5-8.5) Calcium 8.9 mg/dL mg/dL (8.5-10.4) C-Reactive Protein 26.5 mg/L H mg/L (<10.0) Medications Given: Discontinued Medications Colchicine (Colchicine) 1.2 mg PO EDNOW ONE Stop: 08/23/18 17:01 Last Admin: 08/23/18 17:12 Dose: 1.2 mg Dexamethasone (Decadron Injection) 10 mg IVP EDNOW ONE Stop: 08/23/18 17:01 Last Admin: 08/23/18 17:12 Dose: 10 mg Ketorolac Tromethamine (Toradol) 30 mg IVP EDNOW ONE Stop: 08/23/18 17:01 Last Admin: 08/23/18 17:12 Dose: 30 mg Departure - Departure Disposition: Home, Routine, Self-Care Clinical Impression: Podagra, Acute gouty arthropathy Condition: Good Instructions: Low Purine Diet (ED), Gout (ED) Additional Instructions: Wear the postop shoe while out of bed until pain free. Use crutches to aid ambulation until pain free. Take indomethacin every 8 hours with food x 3 days and then as needed for pain. Use Percocet every 6 hours as needed for severe/break through pain. Take colchicine 0.6 mg tomorrow morning. Eat a low purine diet. Follow up with [facility] in 5-7 days to establish care and to repeat evaluation. Referrals: [facility],. [Clinic] - As per Instructions Prescriptions: Colchicine [Colchicine (*)] 0.6 mg PO ONCE #1 tab Indomethacin 50 mg PO Q8 #15 capsule oxyCODONE/APAP 5/325 [Percocet 5/325 (*)] 1 - 2 tab PO Q4H PRN #10 tab PRN Reason: Pain, Severe
[2018-08-23] MEDS ORDERED: KETOROLAC 30 MG/1 ML SDV IVP ONE (17:00)
[2018-08-23] MEDS ORDERED: COLCHICINE 0.6 MG CAP/TAB PO ONE (17:00)
[2018-08-23] MEDS ORDERED: DEXAMETHASONE 10 MG/ML VIAL IVP ONE (17:00)
[2018-08-23 18:00] VITALS: BP 154/101
== END 2018-08-23 18:00 | disposition home or self-care (01) ==
DX: M79.674 Pain in right toe(s) (principal); M10.9 Gout, unspecified; F17.200 Nicotine dependence, unspecified, uncomplicated
CPT/HCPCS: 96374; J1100; J1885; L4386

== ENCOUNTER 2018-10-31 01:51 | Inpatient (IN) | payer MEDICAID, OTHER | END 2018-11-03 16:50 | disposition home or self-care (01) | LOC: F3E 06:10 ==